=== PATIENT | male | born 1995 | race Caucasian/White ===

== ENCOUNTER → 2017-03-15 | Day surgery (SDC) | payer BC ==
[~2017-03-15] MED LIST: DAKIN'S MODIF1000 ML TOP; DOXYCYCLINE; FLUCONAZOLE PO; KLONOPIN1 MG PO; NEURONTIN PO; OXYCODONE HCL10 M1 PO; OXYCODONE HCL10 MG PO; OXYCODONE-ACET1 EAC1 PO; TRILEPTAL PO; UCERIS9 MG PO; [UNRECOGNIZED DRUG - OTHER] IV; [UNRECOGNIZED DRUG - OTHER] PO
== END | disposition home or self-care (01) ==
LOC: CSUR 12:31
DX: L73.2 Hidradenitis suppurativa (principal); L02.411 Cutaneous abscess of right axilla; G40.909 Epilepsy, unspecified, not intractable, without status epilepticus; Z53.8 Procedure and treatment not carried out for other reasons; Z86.2 Personal history of diseases of the blood and blood-forming organs and certain disorders involving the immune mechanism; Z88.2 Allergy status to sulfonamides; Z91.040 Latex allergy status; Z88.6 Allergy status to analgesic agent; Z88.8 Allergy status to other drugs, medicaments and biological substances; Z79.891 Long term (current) use of opiate analgesic; Z79.51 Long term (current) use of inhaled steroids; Z79.899 Other long term (current) drug therapy
CPT/HCPCS: J1170; J3010

== ENCOUNTER 2017-03-16 13:22 | Inpatient (IN) | payer BC ==
--- NOTE | ~2017-03-16 | DS ---
Unit #: [id number] #: [id number] Patient: TONY DAWSON [id number] [address] [address] [id number] MR#: [id number] NAME: TONY DAWSON ROOM: 47 Age: 21 Sex: M Admission Date: 03/16/2017 : 1995 Discharge Date: 03/21/2017 Attending Physician: Lincoln Sigala Jr., M.D. Primary Care Physician: Alan Rocha M.D. DISCHARGE SUMMARY HISTORY AND HOSPITAL COURSE Mr. Dawson is a 21-year-old gentleman with a long history of hidradenitis, who developed uncontrolled and chronic disease. He is brought in the morning of surgery where Dr. Sigala did a sharp excisional debridement of the right axilla. He was admitted to the hospital postoperatively for pain control and dressing changes and once the wound was stable and the patient and his family were able to adequately do the dressings, he will be discharged home. He is otherwise tolerating a regular diet and oral pain medication. [facility] has been asked to see the patient to assist with home dressing changes. He will be discharged home today in stable condition to continue his current dressings changes, undergo diet and activity as tolerated. He can follow up with Dr. Sigala in one to two weeks, and he is to call the office for an office appointment. Prescription for oxycodone and Dakin's were left. Med reconciliation sheet was completed. Dictated by... Brian Camara M.D. LANRE/casey TD: 03/21/2017 10:09 JOB #: [id number] DISCHARGE SUMMARY Page 1 of 1 X Brian Camara MD X DISCHARGE SUMMARY
--- NOTE | ~2017-03-16 | OR ---
Unit #: [id number] #: [id number] Patient: TONY DAWSON [id number] [address] [place], [place] [address] [id number] MR#: [id number] NAME: TONY DAWSON ROOM: 472 Date of Procedure: 03/16/2017 Admission Date: 03/16/2017 Surgeon: Lincoln Sigala Jr., M.D. : 1995 Attending Physician: Lincoln Sigala Jr., M.D. Primary Care Physician: Alan Rocha M.D. OPERATIVE REPORT INDICATIONS FOR PROCEDURE The patient is a 21-year-old white male, who has been having intermittent infections with the right axilla felt to be related to chronic hidradenitis. He was seen recently in the office with a newly area of infection. It was felt that he should be on antibiotics, which he was started on and using heat, brought in for excision of this chronic infected tissue. Over the past couple of days, he has developed progressive erythema with evidence of possible abscess extending out under the axilla towards the arm approximately 3 inches. This was very tender. He is brought in this time for excision of this area, possible closure if indicated. PREOPERATIVE DIAGNOSES Acute and chronic hidradenitis suppurativum with abscess formation. POSTOPERATIVE DIAGNOSES Acute and chronic hidradenitis suppurativum with abscess formation, noting exuberant granulation tissue at the base of the wound and some fascial necrosis. ANESTHESIA General with LMA. PROCEDURE PERFORMED Sharp excisional debridement of skin and subcutaneous tissue and chronic infected tissue of the right axilla. DESCRIPTION OF PROCEDURE The patient was positioned in supine position. After being anesthetized, he was placed in position with his arm elevated and a roll under shoulder for excision of the chronic infected tissue of the right axilla. An elliptical incision was made around the chronic infected area especially the area of erythema that extended out on the arm and there was evidence of some necrotizing fasciitis beneath it. This was all cleaned with a #10 blade scalpel down through the skin to the deeper subcutaneous tissue into the fascia of the muscle. Some of the fascia of the muscle was debrided with the #10 blade scalpel and there was some exuberant granulation tissue that was necrotic that was also debrided sharply with a #10 blade scalpel on top of the muscle. After this was completely removed and the wound clean down to viable tissue, it was irrigated. Hemostasis achieved with Bovie cautery. There were several small arterial bleeders that were controlled with interrupted [id number] 3-0 Vicryl sutures. After Unit #: [id number] #: [id number] Patient: TONY DAWSON total hemostasis was noted, the wound was again irrigated and packed open with Betadine moist dry dressings. Sterile dressings were applied externally. Estimated blood loss less than 120 mL. The patient received less than 2000 mL crystalloid solution during the procedure. Sponges and instruments counts were correct x3. No drains used. No complications. The patient was taken to the recovery room with stable vital signs in satisfactory condition. Dictated by... Lincoln Sigala Jr., M.Quinn. GLENNA/griselda TD: 03/17/2017 02:32 JOB #: [id number] OPERATIVE REPORT Page 1 of 1 X Lincoln Sigala MD X PROCEDURE OPERATIVE NOTE
[2017-03-16] MEDS ORDERED: TRILEPTAL PO ×2 (14:02→14:03)
[2017-03-16] MEDS ORDERED: UCERIS9 MG PO (14:03)
[2017-03-16] MEDS ORDERED: [UNRECOGNIZED DRUG - OTHER] PO (14:04)
[2017-03-16] MEDS ORDERED: KLONOPIN1 MG PO (14:04)
[2017-03-16] MEDS ORDERED: OXYCODONE HCL10 MG PO (14:05)
[2017-03-16] MEDS ORDERED: NEURONTIN PO (14:06)
[2017-03-16] MEDS ORDERED: FLUCONAZOLE PO (14:06)
[2017-03-16] MEDS ORDERED: DOXYCYCLINE (14:07)
[2017-03-16 14:41] LABS: HEMATOCRIT 37.2 % (38.0-50.0); HEMOGLOBIN 12.1 gm/dL (13.0-16.0); MEAN CELL VOLUME 88.1 FL (83-96); MEAN CORPUSCULAR HEMOGLOBIN 28.6 PG (28-34); MEAN CORPUSCULAR HGB CONC 32.4 g/dL (30-36); RED BLOOD COUNT 4.22 X10e (3.90-5.60); RED CELL DISTRIBUTION WIDTH 18.2 % (11.0-15.5); WHITE BLOOD COUNT 8.9 X10e3 (4.0-10.5)
[2017-03-16 15:18] LABS: BUN/CREATININE RATIO 18.57; CALCIUM SERUM 9.1 mg/dL (8.4-10.2); CREATININE SERUM 0.7 mg/dL (0.6-1.4); POTASSIUM 4.7 mmol/L (3.5-5.1)
[2017-03-18 07:49] LABS: CALCIUM SERUM 8.9 mg/dL (8.4-10.2); CREATININE SERUM 0.7 mg/dL (0.6-1.4); POTASSIUM 4.2 mmol/L (3.5-5.1)
[2017-03-20 04:00] LABS: BUN/CREATININE RATIO 12.22; CALCIUM SERUM 8.9 mg/dL (8.4-10.2); CREATININE SERUM 0.9 mg/dL (0.6-1.4); GLOM FILT RATE Estimated 120.8 mL/min (>60); POTASSIUM 3.7 mmol/L (3.5-5.1)
[2017-03-21] MEDS ORDERED: DAKIN'S MODIF1000 ML TOP (09:59)
[2017-03-21] MEDS ORDERED: OXYCODONE-ACET1 EAC1 PO (10:00)
[2017-05-02] MEDS ORDERED: OXYCODONE HCL10 M1 PO (14:50)
[2017-05-02] MEDS ORDERED: [UNRECOGNIZED DRUG - OTHER] IV (14:54)
== END 2017-03-21 13:05 | disposition home health service (06) | DRG 464 ==
LOC: CSUR 13:22 → C4C 16:15 → CPACUOF 16:15 → CSUR 18:36 → C4C 18:37 → CPACUOF 18:37 → C4C 03-21 13:05
PROVIDERS: Surgery
PROC: 0JBD0ZZ Excision of Right Upper Arm Subcutaneous Tissue and Fascia, Open Approach (ICD-10-PCS; principal; 2017-03-16 15:00)
DX: M72.6 Necrotizing fasciitis (principal); L02.411 Cutaneous abscess of right axilla; L73.2 Hidradenitis suppurativa
CPT/HCPCS: 80048; 80202; 82947; 85027; 88304; 94010; 94760; J1100; J1170; J2250; J2270; J2550; J3010; J3370

== ENCOUNTER → 2017-05-02 | Outpatient (CLI) | payer BC ==
[2017-05-02 15:22] LABS: HEMATOCRIT 35.5 % (38.0-50.0); HEMOGLOBIN 11.2 gm/dL (13.0-16.0); MEAN CELL VOLUME 78.8 FL (83-96); MEAN CORPUSCULAR HEMOGLOBIN 24.8 PG (28-34); MEAN CORPUSCULAR HGB CONC 31.5 g/dL (30-36); RED BLOOD COUNT 4.5 X10e (3.90-5.60); WHITE BLOOD COUNT 9.7 X10e3 (4.0-10.5)
== END | disposition home or self-care (01) ==
LOC: CAMB 14:26 → EDSTATUS 15:00 → CAMB 15:00
PROVIDERS: Surgery
DX: Z01.812 Encounter for preprocedural laboratory examination (principal); L73.2 Hidradenitis suppurativa
CPT/HCPCS: 36415; 85027

== ENCOUNTER → 2017-05-08 | Day surgery (SDC) | payer BC ==
--- NOTE | ~2017-05-08 | OR ---
Unit #: [id number] #: [id number] Patient: TONY DAWSON [id number] [address] [place], [place] [address] [id number] MR#: [id number] NAME: TONY DAWSON ROOM: Date of Procedure: 05/08/2017 Admission Date: 05/08/2017 Surgeon: Lincoln Sigala Jr., M.D. : 1995 Attending Physician: Lincoln Sigala Jr., M.D. Primary Care Physician: Alan Rocha M.D. OPERATIVE REPORT INDICATIONS FOR PROCEDURE The patient is a 21-year-old white male, recently underwent extensive debridement of an infected wound of the right axilla from likely hidradenitis. He has an open granulating wound, and this has been doing well since he was last seen in the office. It was felt that he needed a split-thickness skin graft of the area that speed up healing. He was brought in this time at his request for this procedure. He understands the procedure including the risks, including that of failure of the graft to take, infection, chronic pain, contracture, formation, and poor healing, and consents. PREOPERATIVE DIAGNOSIS Open wound, right axilla with good granulation. POSTOPERATIVE DIAGNOSIS Open wound, right axilla with good granulation. ANESTHESIA General with LMA. PROCEDURE PERFORMED Split-thickness skin grafting in the right axillary wound using a graft from the right thigh 167045 of an inch thick. DESCRIPTION OF PROCEDURE The patient was positioned in the supine position. After being anesthetized, he was prepped and draped in a routine fashion for split-thickness skin grafting of his right axilla. The graft was taken from the right anterior thigh approximately 3 inches in width, followed by a length of 6 to 7 inches. This was then removed and expanded to 1 to 1.5 expansion and placed in saline. The donor site was then packed with sponges soaked with epinephrine and saline mix, and after hemostasis was noted, Tegaderm was placed over the area. It was then covered, and the recipient site exposed, and the graft brought up and fashioned over the area of the defect, and tacked in place with stainless-steel cristin. Sterile compression dressing was applied externally. Estimated blood loss was less than 50 mL. The patient received less than 1000 mL of crystalloid solution during the procedure. Sponges and instrument counts were correct x3. No drains were used. No complications. The patient was taken to the recovery room with stable vital signs in satisfactory condition. Unit #: [id number] #: [id number] Patient: TONY DAWSON Dictated by... Lincoln Sigala Jr., MJung MANZANARES/griselda TD: 05/09/2017 11:21 JOB #: [id number] OPERATIVE REPORT Page 1 of 1 X Lincoln Sigala MD X PROCEDURE OPERATIVE NOTE
== END | disposition home or self-care (01) ==
LOC: CSUR 10:17
DX: S41.101A Unspecified open wound of right upper arm, initial encounter (principal); M19.90 Unspecified osteoarthritis, unspecified site; Z88.2 Allergy status to sulfonamides; Z88.6 Allergy status to analgesic agent; Z91.040 Latex allergy status; Z88.8 Allergy status to other drugs, medicaments and biological substances; Z79.891 Long term (current) use of opiate analgesic; Z79.899 Other long term (current) drug therapy; Z98.890 Other specified postprocedural states; X58.XXXA Exposure to other specified factors, initial encounter
CPT/HCPCS: J0171; J1170; J2250; J2405; J3010

== ENCOUNTER 2017-05-09 17:46 | Emergency (ER) | payer BC | END 2017-05-09 20:25 | disposition home or self-care (01) | LOC: CED 17:46 → CFTX 17:46 | DX: Z48.817 Encounter for surgical aftercare following surgery on the skin and subcutaneous tissue (principal); Z88.2 Allergy status to sulfonamides; Z88.5 Allergy status to narcotic agent; Z91.040 Latex allergy status; Z79.899 Other long term (current) drug therapy | CPT/HCPCS: 99282 ==